=== PATIENT | male | born 1995 | race Caucasian/White ===

== ENCOUNTER 2020-03-09 00:39 | Emergency (ER) | payer SELFPAY ==
[~2020-03-09] VITALS: Ht 177.8 cm; Wt 82.0 kg
[2020-03-09 03:05] VITALS: BP 92/49
== END 2020-03-09 03:40 | disposition home or self-care (01) ==
LOC: ER 00:39
DX: T51.0X1A Toxic effect of ethanol, accidental (unintentional), initial encounter (principal); G92 Toxic encephalopathy; Y92.89 Other specified places as the place of occurrence of the external cause
CPT/HCPCS: 93005; 99283